=== PATIENT | female | born 1985 | race Caucasian/White ===

== ENCOUNTER → 2025-02-24 11:00 | Outpatient (REF) | payer OTHER, SELFPAY ==
[2025-02-24 15:38] LABS: Varicella Zoster IgG (VZV) Positive
== END ==
LOC: OHS 11:00
PROVIDERS: ATTENDING PHYSICIAN Nurse Practitioner Family
DX: Z23 Encounter for immunization (principal)
CPT/HCPCS: 36415; 86480; 86706; 86787